=== PATIENT | female | born 1955 | race African-American/Black ===

== ENCOUNTER 2019-06-15 19:44 | Emergency (ER) | payer OTHER, SELFPAY ==
[2019-06-15] MEDS ORDERED: diphenhydrAMINE 25 MG CAP ONE (20:11)
[2019-06-15] MEDS ORDERED: Famotidine 20 MG TAB ONE (20:11)
[2019-06-15] MEDS ORDERED: Dexamethasone 10 MG/ML VIAL ONE (20:12)
== END 2019-06-15 20:23 | disposition home or self-care (01) ==
LOC: ERS 19:44
DX: L50.9 Urticaria, unspecified (principal); F41.9 Anxiety disorder, unspecified; F32.9 Major depressive disorder, single episode, unspecified; F17.220 Nicotine dependence, chewing tobacco, uncomplicated
CPT/HCPCS: 99282; J1100; Q0163